=== PATIENT | male | born 1965 | race Caucasian/White ===

== ENCOUNTER 2017-03-13 16:26 | Emergency (ER) | payer BC ==
--- NOTE | ~2017-03-13 | CR169 ---
[facility] A Service [facility] RADIOLOGY TEXT RESULTS PATIENT: TORO ROMERO LOCATION: [facility] : 63 UNIT #: [id number] AGE: [address]: Hilton Klein MD SEX: M ORDER DR: [id number] [place] [id number] [facility]. [place], [place] [address] [id number] E MR#: [id number] Acc #: [id number] NAME: TORO ROMERO : 1965 SEX: M STUDY DATE/TIME: 03/13/2017 16:02 UNIT: [facility] ROOM: STUDY DESCRIPTION: CR Knee 2 Views Lt Attending Physician: Hilton Klein M.D. Ordering Physician: Hilton Klein M.D. Primary Care Physician: Jacqueline Arredondo M.D. MEDICAL IMAGING REPORT This report is preliminary unless electronic signature is present EXAM Left knee, 2 views. DATE OF EXAM 03/13/2017 HISTORY Left knee pain, swelling and bruising beginning 4 days ago. No known trauma. FINDINGS AP and lateral projection of the knee shows smooth articular anatomy without indication of fracture or dislocation at the major weight-bearing surface of the knee. There is no indication of radiopaque foreign body about the knee surface or joint effusion. IMPRESSION Normal left knee. Dictated by... Chas Bueno M.D. THIS IS AN ELECTRONICALLY VERIFIED REPORT Chas Bueno M.D. at 03/14/2017 3:16 PM KRT/nora TD: 03/13/2017 20:20 JOB #: [id number] MEDICAL IMAGING REPORT [facility] A Service [facility] RADIOLOGY TEXT RESULTS PATIENT: TORO ROMERO LOCATION: [facility] : 63 UNIT #: [id number] AGE: [address]: Hilton Klein MD SEX: M ORDER DR: Page 1 of 1 COPY
--- NOTE | ~2017-03-13 | US85 ---
[facility] A Service of [facility] RADIOLOGY TEXT RESULTS PATIENT: TORO ROMERO LOCATION: [facility] : 63 UNIT #: [id number] AGE: [address]: Hilton Klein MD SEX: M ORDER DR: [id number] [facility] [address] [place], [place] [address] [id number] E MR#: [id number] Acc #: [id number] NAME: TORO ROMERO : 1965 SEX: M STUDY DATE/TIME: 03/13/2017 15:47 UNIT: [facility] ROOM: STUDY DESCRIPTION: [facility] [employer] [place] Attending Physician: Hilton Klein M.D. Ordering Physician: Hilton Klein M.D. Primary Care Physician: Jacqueline Arredondo M.D. MEDICAL IMAGING REPORT This report is preliminary unless electronic signature is present EXAM Left lower extremity venous ultrasound. INDICATION Left leg pain for 4 days. TECHNIQUE Venous ultrasound examination of the left lower extremity was performed using grayscale, spectral Doppler and color flow Doppler imaging. FINDINGS The examination is negative. There is no evidence of left lower extremity deep venous thrombus from the groin to the lower calf. Visualized greater saphenous vein is also patent. IMPRESSION Negative examination. No evidence of left lower extremity DVT. Dictated by... Cornelius Calderon M.D. THIS IS AN ELECTRONICALLY VERIFIED REPORT Cornelius Calderon M.D. at 03/13/2017 9:54 PM SINDY/nora TD: 03/13/2017 19:52 JOB #: [id number] [facility] A Service [facility] RADIOLOGY TEXT RESULTS PATIENT: TORO ROMERO LOCATION: [facility] : 63 UNIT #: [id number] AGE: [address]: Hilton Klein MD SEX: M ORDER DR: MEDICAL IMAGING REPORT Page 1 of 1 COPY
--- NOTE | ~2017-03-13 | CR106 ---
[facility] A Service of [facility] RADIOLOGY TEXT RESULTS PATIENT: TORO ROMERO LOCATION: [facility] : 63 UNIT #: [id number] AGE: [address]: Hilton Klein MD SEX: M ORDER DR: [id number] [facility] [address] [place], [place] [address] [id number] E MR#: [id number] Acc #: [id number] NAME: TORO ROMERO : 1965 SEX: M STUDY DATE/TIME: 03/13/2017 15:59 UNIT: [facility] ROOM: STUDY DESCRIPTION: CR Femur 2 Views Lt Attending Physician: Hilton Klein M.D. Ordering Physician: Ed Tejinder Villasenor M.D. Primary Care Physician: Jacqueline Arredondo M.D. MEDICAL IMAGING REPORT This report is preliminary unless electronic signature is present EXAM Left femur. INDICATIONS Left femur pain for a few days which feels like it is spreading. Bruising started as a small knot Wednesday. FINDINGS AP and lateral views of the femur were obtained. The bones are normal. No foreign bodies were identified. IMPRESSION Normal left femur. Dictated by... Cornelius Calderon M.D. THIS IS AN ELECTRONICALLY VERIFIED REPORT Cornelius Calderon M.D. at 03/13/2017 9:54 PM SINDY/nora TD: 03/13/2017 20:02 JOB #: [id number] MEDICAL IMAGING REPORT Page 1 of 1 COPY
[2017-03-13 16:07] LABS: BASOPHIL# 0.3 X10e3 (0-0.3); BASOPHIL% 3.2 % (0-2.5); EOSINOPHIL# 0.5 X10e3 (0-0.7); EOSINOPHIL% 6.2 % (0.0-7.0); HEMATOCRIT 39.6 % (38.0-50.0); HEMOGLOBIN 13.2 gm/dL (13.0-16.0); LYMPHOCYTE# 1.5 X10e3 (1.0-3.5); LYMPHOCYTE% 17.7 % (17.0-45.0); MEAN CELL VOLUME 88.7 FL (83-96); MEAN CORPUSCULAR HEMOGLOBIN 29.6 PG (28-34); MEAN CORPUSCULAR HGB CONC 33.4 g/dL (30-36); MONOCYTE# 0.6 X10e3 (0-1.0); MONOCYTE% 7.6 % (3.0-12.0); NEUTROPHIL# 5.5 X10e3 (1.5-7.1); NEUTROPHIL% 65.3 % (40-75); PLATELET COUNT 397 X10e3 (140-420); RED BLOOD COUNT 4.46 X10e (3.90-5.60); RED CELL DISTRIBUTION WIDTH 13.1 % (11.0-15.5); WHITE BLOOD COUNT 8.4 X10e3 (4.0-10.5)
[2017-03-13 16:15] LABS: DIFF IND NO
[2017-03-13 16:25] LABS: INR 0.9; PARTIAL THROMBOPLASTIN TIME 24.5 SECONDS (23.5-31.3); PROTHROMBIN TIME (PATIENT) 9.3 SECONDS (9.6-11.5)
[~2017-03-13 16:26] MED LIST: BUMEX PO; CARDIZEM CD PO; CERTAGEN PO; DYAZIDE 37.5/251 CAP PO; KEFLEX PO; LIPITOR PO; LISINOPRIL PO; NAPROXEN PO; PRAVACHOL PO; PREDNISONE PO; PROTONIX PO; VITAMIN D; ZAROXYLYN PO
[2017-03-13 16:28] LABS: ALBUMIN SERUM 2.9 g/dL (3.5-5.0); BILIRUBIN, DIRECT 0.1 mg/dL (0.0-0.2); BILIRUBIN,INDIRECT 0.3 mg/dL (0.0-0.9); BILIRUBIN,TOTAL 0.4 mg/dL (0.2-2.0); BUN/CREATININE RATIO 23.84; CREATININE SERUM 1.3 mg/dL (0.6-1.4); GLOM FILT RATE Estimated 62.8 mL/min (>60); POTASSIUM 4.5 mmol/L (3.5-5.1); PROTEIN TOTAL SERUM 5.7 g/dL (6.0-8.3)
== END 2017-03-13 16:47 | disposition home or self-care (01) ==
LOC: CED 16:26
PROVIDERS: Emergency Medicine
DX: M79.605 Pain in left leg (principal); I10 Essential (primary) hypertension; Z88.8 Allergy status to other drugs, medicaments and biological substances
CPT/HCPCS: 36415; 73552; 73560; 80048; 80076; 85025; 85610; 85730; 93971; 99284

== ENCOUNTER → 2017-04-27 | Outpatient (CLI) | payer BC ==
[2017-04-27 11:05] LABS: ALBUMIN SERUM 2.7 g/dL (3.5-5.0); BUN/CREATININE RATIO 16.66; CALCIUM SERUM 8.1 mg/dL (8.4-10.2); CREATININE SERUM 1.2 mg/dL (0.6-1.4); GLOM FILT RATE Estimated 69.1 mL/min (>60); PHOSPHOROUS 2.6 mg/dL (2.5-4.6); POTASSIUM 4.3 mmol/L (3.5-5.1)
[2017-04-27 14:45] LABS: CREATININE,RANDOM URINE 66 mg/dL
[2017-04-27 14:46] LABS: TOTAL PROTEIN,RANDOM URINE 278 mg/dl (<10)
== END | disposition home or self-care (01) ==
LOC: SLAB 10:30
PROVIDERS: Internal Medicine Nephrology
DX: N04.2 Nephrotic syndrome with diffuse membranous glomerulonephritis (principal)
CPT/HCPCS: 36415; 80061; 80069; 82570; 84156